=== PATIENT | male | born 1960 | race Caucasian/White ===

== ENCOUNTER 2020-11-30 15:15 | Outpatient (RCR) | payer MEDICARE ==
[~2020-11-30 15:15] MED LIST: BACTRIM DS 8001 TAB PO; COLACE 100100 MG/CAP PO; FLEXERIL 1010 MG/TAB PO; HCTZ 25MG TAB25 MG PO; MOTRIN800 MG PO; NORCO 325 MG-51 TAB PO; PERCOCET 325 MG1 TAB PO; PRINIVIL10 MG PO
== END 2021-01-10 | disposition home or self-care (01) ==
LOC: WSPT
DX: M54.17 Radiculopathy, lumbosacral region (principal); M96.1 Postlaminectomy syndrome, not elsewhere classified